=== PATIENT | male | born 1985 | race Caucasian/White ===

== ENCOUNTER 2024-02-09 08:02 | Emergency (ER) | payer BC, SELFPAY ==
[2024-02-09 08:05] VITALS: BP 134/90; PULSE 62; RESP 18; TEMP 36.6; O2SAT 98; BMI 27.6
--- NOTE | 2024-02-09 08:26 | US_ITS ---
STUDY: SCROTUM ULTRASOUND REASON FOR EXAM: Male, 38 years old. Right scrotal pain. TECHNIQUE: Ultrasound evaluation of the scrotum was performed with color Doppler and static carrasco-scale imaging. COMPARISON: None. FINDINGS: RIGHT TESTICLE INTRATESTICULAR: There is a normal size of the right testicle. The right testicle measures 4.3 cm x 3.3 cm x 2.6 cm. There is a homogenous echotexture. There is normal arterial and normal venous vascularity. There is no demonstrated right testicular mass or cyst. EXTRATESTICULAR: The epididymis is slightly enlarged. The epididymis head measures 1.2 cm x 2 cm x 1.3 cm. There is mildly increased (hyperemic) vascularity of the epididymis. 2 epididymal cysts are seen. The larger measures 1.1 cm x 0.6 cm x 0.8 cm. There is no demonstrated hydrocele. There is no demonstrated varicocele. There is no demonstrated extratesticular mass or cyst. LEFT TESTICLE INTRATESTICULAR: There is a normal size of the left testicle. The left testicle measures 4.1 cm x 3.3 cm x 2.4 cm. There is a homogenous echotexture. There is normal arterial and normal venous vascularity. There is no demonstrated left testicular mass or cyst. EXTRATESTICULAR: The epididymis is normal in size. The epididymis head measures 1.1 cm x 1.5 cm x 1 cm. There is normal vascularity of the epididymis. There is a well-defined cystic structure within the epididymis, without internal echoes, consistent with an epididymal cyst. There is a small hydrocele. There is no demonstrated varicocele. There is no demonstrated extratesticular mass or cyst. US/Testicular with Arterial Flow IMPRESSION: Bilateral epididymal cysts more prominent on the right side with mild increased vascularity. Small left hydrocele. Electronically Signed: Gerardo Garcia MD at 9:54 EDT ,
[2024-02-09] MEDS: Ibuprofen 600 MG Tablet PO (08:45)
--- NOTE | 2024-02-09 08:46 | EX.ED.GUMALE ---
HPI History of Present Illness Chief Complaint: Male Pain/Injury Informant: patient Narrative Narrative: Increasing nontraumatic right scrotal pain since yesterday. No dysuria. No penile discharge. No history of similar. Sexually active single partner with his spouse. No fevers or chills. No medications taken. No allergies. Patient does report a lot of walking at his job, works out 3 times a week. Prior similar symptoms: No PFSH PFSH Home Medications ?Medication ?Instructions ?Recorded ?Last Taken ?Type citalopram 20 mg tablet (Celexa) 20 mg PO DAILY 05/20/17 Unknown History multivitamin (Multiple Vitamins 1 ea PO DAILY 05/20/17 Unknown History tablet) Allergy/AdvReac Type Severity Reaction Status Date / Time No Known Allergies Allergy Verified 05/20/17 22:17 Social History Smoking Status: Never smoker ROS ROS ED Constitutional Constitutional ED: Denies chills, fever(s) or sweats Eyes Eyes: Denies change in vision ENT ENT ED: Denies dysphagia or sore throat Cardiovascular Cardiovascular: Denies chest pain, leg edema, palpitations or racing heartbeat Respiratory/Chest Respiratory/Chest: Denies cough, dyspnea or dyspnea on exertion Gastrointestinal Gastrointestinal: Denies abdominal pain, diarrhea, nausea or vomiting Genitourinary Genitourinary ED: Reports other Details: Right scrotal pain, no penile discharge ; Denies dysuria, hematuria or urinary frequency Musculoskeletal Musculoskeletal: Denies back pain, extremity pain or neck pain Integumentary Denies rash or wounds Neurologic Neurologic: Denies headache(s), paresthesias or weakness EXAM Physical Exam Const Vital Signs: 02/09/24 08:05 Temperature 97.8 F Temperature Source Temporal Pulse Rate 62 Respiratory Rate 18 Blood Pressure 134/90 H Blood Pressure Mean 104 Pulse Ox 98 Oxygen Delivery Method Room Air Positive well nourished and well developed General Appearance ED: well developed and NAD HEENT Reports moist mucous membranes normocephalic and atraumatic Eyes EOMs intact bilaterally and conjunctivae normal General Eye ED: Yes normal appearance of both eyes Neck no lymphadenopathy and supple General: Negative for tenderness Chest Wall Chest: Negative for tenderness Resp normal respiratory effort and normal air movement Effort and Inspection: symmetric chest movement; Negative for respiratory distress Cardio regular rate, regular rhythm and no murmurs Peripheral Pulses: pulses 2+ throughout GI normal to inspection, nondistended, normoactive bowel sounds and non-tender Palpation: Negative for guarding or rebound tenderness present Narrative: No penile lesions no scrotal swelling. Left testicle nontender. Right testicle nontender however there is tenderness at the epididymis. No hernias palpated. Back/Spine no CVA tenderness and no thoracic nor lumbar tenderness Extremity normal to inspection General Extremety ED: Negative for edema or tenderness General Extremity: Negative for edema Neuro oriented x3 and no sensory deficits noted Sensorium / Orientation: awake and alert Skin no rashes or lesions noted and no wounds MDM MDM MDM Narrative Medical decision making narrative: Interventions / MDM: Differential diagnosis: Epididymitis Diagnosis considered but do not suspect: No clinical testicular torsion. My EKG interpretation: N/A Imaging independently reviewed and interpreted by myself: Scrotal ultrasound: Per radiology bilateral epididymal cysts with increased vascularity on the right side. External documents reviewed: N/A Test considered but not ordered:N/A ED course: Patient epididymal tenderness right upper scrotum. No scrotal swelling. Ice was ordered ibuprofen. Urine, STD screening sent. Ultrasound ordered for evaluation. 929: Patient return for ultrasound clinically was improving. Urine without infection. He stated he needed to leave to take care of of issues. He has no clinical torsion. He will continue ibuprofen and scrotal support. Will be given follow-up with urology as an outpatient. Review of ultrasound post discharge epididymal cyst with increased vascularity on the right side this is consistent with epididymitis. Re-evaluation: stable Disposition discussed with patient/family/significant other: Patient Case discussed with consulting clinician: N/A This note was generated with [employer] dictation software. It may contain incorrect words, spelling, and punctuation that were not noted in checking the note before signing. Lab Data Labs: Laboratory Results - last 24 hr 02/09/24 08:46 Urine Color Yellow Urine Clarity Clear Urine pH 7.0 Ur Specific [place] 1.015 Urine Protein 15 H Urine Glucose (UA) Normal Urine Ketones Negative Urine Occult Blood Negative Urine Nitrite Negative Urine Bilirubin Negative Urine Urobilinogen Normal Ur Leukocyte Esterase Negative Urine RBC 0 SEEN Urine WBC 0 SEEN Ur Squamous Epith Cells 0 SEEN Urine Bacteria 0 SEEN Urine Mucus 0 SEEN Radiography Diagnostic Testing: Clinical Impression(s) from Imaging Studies Testicular Ultrasound 02/09/24 08:26 IMPRESSION: Bilateral epididymal cysts more prominent on the right side with mild increased vascularity. Small left hydrocele. Electronically Signed: Gerardo Garcia MD at 9:54 EDT , Discharge Plan Triage Chief Complaint: Male Pain/Injury ED Provider: Johnathan Thao Dx/Rx/DC Orders Clinical Impression: Right epididymitis, Scrotal pain Instructions: ED Epididymitis Prescriptions: No Action multivitamin [Multiple Vitamins] 1 EACH tablet 1 ea PO DAILY citalopram [Celexa] 20 MG tablet 20 mg PO DAILY Primary Care Provider: Joe Delacruz Referrals: Favio Pollard MD [Med Staff - Active Staff] - 1-2 Weeks Joe Delacruz MD [Primary Care Provider] - 1 Week Activity Restrictions/Additional Instructions: Urine without infection. Continue ibuprofen 600 g every 6 hours. Scrotal support discussed. May follow-up with Dr. Pollard or your PCP. Print Language: Syriac Disposition Disposition: Home, Self Care Discharge Date/Time: 02/09/24 09:38
[2024-02-09 08:52] LABS: Bacteria 0 SEEN /hpf (None Seen); Mucous, Urine 0 SEEN /hpf (<or=2+); Red Blood Cells-Urine 0 SEEN /hpf (0-5); Squamous Epithelial Cells - UA 0 SEEN /hpf (0-5); White Blood Cells 0 SEEN /hpf (0-5)
[2024-02-09 08:56] LABS: Color, Urine Yellow (Yellow); Glucose, Dipstick Normal (Normal); Ketone-Dipstick Negative (Negative); Leukocyte Esterase-Dipstick Negative /ul (Negative); Nitrite-Dipstick Negative (Negative); Occult Blood-Urine Negative /ul (Negative); Protein-Dipstick 15 mg/dl (Negative); Specific Gravity, Urine 1.015 (1.002-1.030); Urine Bilirubin Dipstick Negative (Negative); Urine Clarity Clear (Clear); Urine Urobilinogen Normal (Normal)
== END 2024-02-09 09:38 | disposition home or self-care (01) ==
PROVIDERS: Emergency Provider Emergency Medicine; PCP Family Medicine; Visit Provider Emergency Medicine
DX: N45.1 Epididymitis (principal); N50.82 Scrotal pain; N50.3 Cyst of epididymis
CPT/HCPCS: 76870; 81001; 87491; 87591; 93976; 99282